=== PATIENT | female | born 1975 | race Caucasian/White ===

== ENCOUNTER 2022-04-07 02:02 | Emergency (ER) | payer BC ==
[~2022-04-07] VITALS: Ht 152.4 cm; Wt 77.1 kg
--- NOTE | 2022-04-07 02:09 | NUR ---
JEFF FROM [place] C/O CHEST PAIN STARTED A FEW HOURS AGO RAD TO BACK +N/V . PT A/OX4. TOLERATING R/A WELL WITH NO SOB; RESP EVEN AND NON LABORED. CONNECTED PT TO POX AND MONITOR. SAFETY MEASURES IN PLACE.
--- NOTE | 2022-04-07 02:25 | NUR ---
radiology at bedside
--- NOTE | 2022-04-07 02:25 | NUR ---
BLOOD COLLECTED AND SENT TO LAB
--- NOTE | 2022-04-07 02:26 | NUR ---
EMT AT PT'S BEDSIDE FOR EKG
[2022-04-07] MEDS ORDERED: KETOROLAC TROMETHAMINE INJ 30 MG/ML VIAL IV ONE (02:30)
[2022-04-07 02:45] LABS: BASOPHILS % (AUTO) 0.3 % (0.0-2.0); EOSINOPHILS % (AUTO) 1.2 % (0.0-6.0); HEMATOCRIT 40 % (33-45); HEMOGLOBIN 13.3 g/dL (11.5-14.8); LYMPHOCYTES # (AUTO) 2.4 K/uL (0.8-4.8); MEAN CORPUSCULAR HGB CONC 33 g/dl (31.0-36.0); MEAN CORPUSCULAR VOLUME 94 fL (82-100); MONOCYTES # (AUTO) 0.4 K/uL (0.1-1.30); MONOCYTES % (AUTO) 4.4 % (2.0-12.0); NEUTROPHILS # (AUTO) 6.2 K/uL (1.8-8.9); NEUTROPHILS % (AUTO) 68.1 % (43.0-81.0); PLATELET COUNT (AUTO) 227 K/uL (150-450); RED BLOOD CELL COUNT(AUTO) 4.27 MIL/uL (4.0-5.2); WHITE BLOOD COUNT (AUTO) 9.1 K/uL (4.3-11.0)
--- NOTE | 2022-04-07 02:50 | NUR ---
LAB CALLED BLOOD WILL BE REDRAWN D/T SPECIMEN HEMOLIZED. AWARE.
[2022-04-07 03:21] LABS: CALCIUM, SERUM 8.7 mg/dL (8.5-10.1); CARBON DIOXIDE 29 mmol/L (21-32); CHLORIDE 106 mmol/L (98-107); CREATININE 0.8 mg/dL (0.6-1.3); GLUCOSE 125 mg/dL (74-106); SODIUM SERUM 143 mmol/L (136-145); UREA NITROGEN, BLOOD 8 mg/dL (7-18)
[2022-04-07 03:27] LABS: D-DIMER 0.39 mg/L(FEU (0.17-0.50)
--- NOTE | 2022-04-07 03:29 | NUR ---
GLUING MACHINE OPERATOR AT PT'S BEDSIDE
[2022-04-07] MEDS ORDERED: POTASSIUM CHLORIDE 20 MEQ TAB.PRT.SR PO ONE ×2 (03:30→03:36)
[2022-04-07 03:35] LABS: ALANINE AMINOTRANSFERASE 96 U/L (12-78); ALBUMIN 3.6 g/dL (3.4-5.0); ALKALINE PHOSPHATASE 116 U/L (46-116); ASPARTATE AMINOTRANSFERASE 209 U/L (15-37); BILIRUBIN,DIRECT 0.5 mg/dL (0.0-0.2); BILIRUBIN,TOTAL 1.3 mg/dL (0.2-1.0)
[2022-04-07] MEDS ORDERED: MORPHINE SULFATE INJ 2 MG/ML DISP.SYRIN ONE (03:53)
[2022-04-07] MEDS ORDERED: ONDANSETRON HCL/PF 4 MG/2 ML VIAL ONE (03:54)
[2022-04-07] MEDS ORDERED: MORPHINE SULFATE INJ 2 MG/ML DISP.SYRIN IV ONE (04:00)
[2022-04-07] MEDS ORDERED: ONDANSETRON HCL/PF 4 MG/2 ML VIAL IV ONE (04:00)
--- NOTE | 2022-04-07 04:55 | NUR ---
FOLLOWED UP WITH [facility] REGARDING IMAGING RESULT. WILL BE 15-20 MIN MORE
--- NOTE | 2022-04-07 05:00 | NUR ---
lab at bedside
--- NOTE | 2022-04-07 05:01 | NUR ---
PER [facility]; REPORT TO BE RESULTED ABOUT 15 - 20MINS
[2022-04-07 06:02] VITALS: BP 154/99
--- NOTE | 2022-04-07 06:02 | NUR ---
Patient discharged to home in stable condition. Written and verbal after care instructions given. Patient verbalizes understanding of instruction. IV removed. Catheter intact and site benign. Pressure and 4x4 applied to site. No bleeding noted. PT ambulatory with a steady gait
== END 2022-04-07 06:32 | disposition home or self-care (01) ==
LOC: ER 02:11
DX: R07.89 Other chest pain (principal); E87.6 Hypokalemia; Z88.8 Allergy status to other drugs, medicaments and biological substances; Z60.2 Problems related to living alone
CPT/HCPCS: 36415; 71045; 80048; 80076; 84484 ×2; 85025; 85378; 85730; 93005; 96374; 96375; 99285; J1885; J2270; J2405